=== PATIENT | male | born 1985 | race Caucasian/White ===

== ENCOUNTER 2020-11-17 14:12 | Emergency (ER) | payer BC, OTHER ==
[~2020-11-17] VITALS: Ht 177.8 cm; Wt 83.9 kg
[~2020-11-17 14:12] MED LIST: CLIN300C3 PO; NAPR-243 PO; TRM50T PO
[2020-11-17 14:26] VITALS: BP 155/81
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
== END 2020-11-17 15:19 | disposition home or self-care (01) ==
LOC: EDUNIT# 14:12 → ER 14:16
DX: S40.011A Contusion of right shoulder, initial encounter (principal); F17.210 Nicotine dependence, cigarettes, uncomplicated; V86.99XA Unspecified occupant of other special all-terrain or other off-road motor vehicle injured in nontraffic accident, initial encounter
CPT/HCPCS: 73030